=== PATIENT | male | born 1990 | race Caucasian/White ===

== ENCOUNTER 2019-11-15 19:52 | Inpatient (IN) ==
[2019-11-15] MEDS ORDERED: SODIUM CHLORIDE 0.9% 1000ML 2,000 ML IV SCH (20:30)
[2019-11-15] MEDS ORDERED: LORazepam 2 MG/ML VIAL (IM USE) IM STA (20:41)
[2019-11-15] MEDS ORDERED: DiphenhydrAMINE HCL 50 MG/ML VIAL IM STA (20:41)
[2019-11-15] MEDS ORDERED: HALOPERIDOL LACTATE 5 MG/ML 1 ML VIAL IM STA (20:41)
[2019-11-15 21:36] LABS: Basophils # (auto) 0.06 K/uL (0-0.2); Basophils % (auto) 0.5 %; Eosinophils # (auto) 0.07 K/uL (0-0.5); Eosinophils % (auto) 0.5 %; Hematocrit (blood only) 40.2 % (42-52); Hemoglobin 13.9 g/dL (14.0-18.0); Immature Granulocytes # (auto) 0.03 K/uL (0.00-0.02); Immature Granulocytes % (auto) 0.2 %; Lymphocytes # (auto) 1.54 K/uL (1.2-3.4); Lymphocytes % (auto) 11.8 %; Mean Corpuscular Hemoglobin 30.8 pg (25-34); Mean Corpuscular Hgb Conc 34.6 g/dL (32-36); Mean Corpuscular Volume 89.1 fL (80-100); Mean Platelet Volume 8.7 fL (7.4-10.4); Monocytes # (auto) 1.22 K/uL (0.11-0.59); Monocytes % (auto) 9.4 %; Neutrophils % (auto) 77.6 %; Platelet Count 331 K/uL (130-400); RDW Coefficient of Variation 13.3 % (11.5-14.5); RDW Standard Deviation 43.5 fL (36.4-46.3); Red Blood Count 4.51 M/uL (4.7-6.1); White Blood Count 13.02 K/uL (4.8-10.8)
[2019-11-15 22:22] LABS: Alanine Aminotransferase 49 U/L (12-78); Albumin Level 4.2 gm/dl (3.4-5.0); Aspartate Aminotransferase 154 U/L (15-37); BUN Creatinine Ratio 14.5 (10-20); Blood Urea Nitrogen 19 mg/dl (7-18); Calcium 9.2 mg/dl (8.5-10.1); Carbon Dioxide 26 mmol/L (21-32); Chloride 107 mmol/L (98-107); Est GFR (African American) 43.8; Est GFR (Non-African American) 37.8; Glucose 111 mg/dl (70-99); Magnesium 2.2 mg/dl (1.8-2.4); Potassium 3.6 mmol/L (3.5-5.1); Sodium 141 mmol/L (136-145)
[2019-11-15 22:37] LABS: Acetaminophen < 2 ug/ml (10-30); Salicylate 1.8 mg/dl (2.8-20)
[2019-11-15 22:51] LABS: Albumin Globulin Ratio 1.3 (0.9-2); Alkaline Phosphatase 65 U/L (45-117); Bilirubin,Total 0.7 mg/dl (0.2-1); Creatine Kinase 13641 U/L (39-308); Globulin 3.3 gm/dl (2.5-4.0); Total Protein 7.5 gm/dl (6.4-8.2); Troponin I < 0.015 ng/ml (0-0.045)
[2019-11-15] MEDS ORDERED: SODIUM CHLORIDE 0.9% 1000ML 1,000 ML IV STA (23:28)
[2019-11-16 00:19] LABS: Appearance Urine Clear (Clear); Bacteria Urine Automated Negative (Negative); Blood Urine Negative (Negative); Color Urine Dark Yellow; Glucose Urine UA Negative (Negative); Ketones Urine 1+ (Negative); Leukocyte Esterase Urine Trace (Negative); Nitrite Urine Negative (Negative); Protein Urine 1+ (Negative); RBC Urine Automated 0-4 /hpf (0-4); Specific Gravity Urine 1.035 (1.000-1.030); Urobilinogen Urine Negative (Negative)
--- NOTE | 2019-11-16 00:22 | Emergency Department Note ---
Impression & Plan AMS (altered mental status), Delirium, Rhabdomyolysis ED Provider Note INFORMANT: EMS ED PROVIDER(S): Albert Wise MD CHIEF COMPLAINT: Altered mental status PLAN: Disposition: Admitted Condition: Guarded MEDICAL DECISION MAKING: Patient presented to emergency department with altered mental status. He was experiencing what appeared to be an excited delirium. Unfortunately he was extremely combative, dangerous, and not following commands. He did require physical and chemical sedation and restraint in order to protect him and the staff. He did receive 10 mg of Haldol IM, Ativan 2 mg IM, Benadryl 25 mg IM. This worked very well for controlling his agitation and aggressive behavior. He was frequently monitored. He underwent CT imaging of his head and cervical spine which did not reveal any traumatic findings. Chest x-ray was unremarkable. The patient had a mild leukocytosis on CBC otherwise his chemistries were unremarkable. Toxicology screen is pending. His total CK measurement was markedly elevated which was concerning for rhabdomyolysis. He was aggressively hydrated. A [place] catheter was placed. Urinalysis and UDS sent. Consultation was made with Dr. Jordan Weller of the [facility] service. He evaluated the patient in the emergency department for further management of his excited delirium and his rhabdomyolysis. Patient was admitted for further treatment. Triage Nursing notes reviewed and agree them. [Additional history obtained from] EMS Vital Signs: reviewed and remarkable for tachycardia Differential diagnosis: Toxicologic, infection, hypoglycemia, electrolyte abnormalities, overdose, cardiac sources, intracerebral event, neurologic, trauma, as well as other pathologies. Diagnostics interpreted by me: ECG: Twelve-lead ECG reveals a normal sinus rhythm at 95 bpm. There is low voltage QRS. Normal axis and normal QRS. No ST elevation or depression. No PACs or PVCs. Cardiac Monitoring: Cardiac monitoring ordered by me: The patient was placed on continuous cardiac monitoring and observed. It revealed a normal sinus rhythm at 89 beats per minute without ectopy or evidence of dysrhythmia. Imaging studies: Chest x-ray. Findings: A chest x-ray was performed and revealed no pneumothorax, effusion, infiltrate, pulmonary edema, free air under the diaphragm, or wide mediastinum. Impression: No acute disease. Head CT: A noncontrast CT scan of the head was performed and was negative for tumor, fracture, intracranial hemorrhage, or other acute pathology. Cervical spine CT was negative for acute process. [facility] HPI: The patient is a unknown age male who presents to the Emergency Room with police due to altered mental status and abnormal behavior. Patient was reportedly acting strange near the [place]. The patient was attempting to break into vehicle and then reportedly jumped into the police car and tried to run over the officers. Due to his aggressive behavior and delirious status the patient was deemed a danger to himself and the officers. He was tased. He was physically restrained. He was subdued and brought to the emergency department for evaluation. Upon arrival the patient only stated his name and that he had hepatitis C. He denied any pain but would not follow commands. He was physically aggressive with staff. He required restraint for his protection as well as that of the medical staff and security. History is limited secondary to his altered mental status. ROS: Untenable secondary to altered mental status. PAST MEDICAL HISTORY:Unobtainable secondary to altered mental status PAST SURGICAL HISTORY:Unobtainable secondary to altered mental status FAMILY HISTORY:Unobtainable secondary to altered mental status SOCIAL HISTORY:Unobtainable secondary to altered mental status HOME MEDICATIONS:Unobtainable secondary to altered mental status ALLERGIES:Unobtainable secondary to altered mental status VITALS:[See Below] PHYSICAL EXAMINATION: GENERAL: Altered, agitated, uncooperative, age-appropriate appearing, mild dis tress HENT: Normocephalic, atraumatic. Oropharynx unremarkable. EYES: PERRL. Erythematous conjunctiva. Sclera non-icteric. NECK: Supple. Inspection normal. No nuchal rigidity. FROM. No masses. RESPIRATORY: CTA. Breath sounds equal. No wheezes. Normal respiratory effort. CARDIAC: Tachycardic rate. Normal rhythm. No murmurs. No rubs. GI/ABDOMEN: Soft, non distended. No tenderness to palpation. No rebound or guarding. No masses. RECTAL: Deferred. MUSCULOSKELETAL: No edema. No discoloration. Gross motor strength 5/5 bilaterally. NEURO: Altered sensorium. Not following commands however physically strong and moving all extremities purposefully. Speech is broken. SKIN: Mildly diaphoretic. Scattered abrasions on the extremities and trunk. No lacerations. No rash or jaundice noted. LYMPH: No adenopathy. ED COURSE: [Critical Care:] I have personally spent greater than 50 minutes of critical care time in the direct management of this patient. This includes bedside care, interpretation of diagnostic studies, and testing, discussion with consultants, patient, and other required patient management activities. These minutes are in excess of all separately billable procedures. Albert Wise MD Past Med/Surg History Social History Smoking Status: Current every day smoker Tobacco Type: Cigarettes Preferred Language: Citizen Of [place] Feels Safe at Home: Declines to Answer Allergies Allergies Allergy/AdvReac Type Severity Reaction Status Date / Time Unable to Assess Allergy Verified 11/15/19 20:43 Home Meds Home Medications Medication Instructions Recorded Confirmed Unobtainable 11/15/19 11/15/19 Results & Data (ED) Vital Signs Vital Signs - 24 hr 11/15/19 19:52 11/15/19 20:31 11/15/19 20:37 Temperature 37.5 C Temperature Source Axillary Pulse Rate 140 H 110 H Pulse Rate [Left Finger] Pulse Rate from SpO2 Sensor Respiratory Rate 23 15 Blood Pressure 106/62 111/78 Blood Pressure [Right Arm] Blood Pressure Mean 76 82 Blood Pressure Mean [Right Arm] Blood Pressure Position [Right Arm] Pulse Oximetry 96 Oxygen Delivery Method Room Air Room Air Sepsis Recent Fever Within 48 Hours No Sepsis New/Unexplained Change in Mental Status Yes Sepsis Action Taken by Nursing No Action Required 11/15/19 21:00 11/15/19 21:30 11/15/19 21:57 Temperature Temperature Source Pulse Rate 103 H 97 H 85 Pulse Rate [Left Finger] Pulse Rate from SpO2 Sensor 94 H 87 Respiratory Rate 17 14 15 Blood Pressure 120/64 126/65 136/74 Blood Pressure [Right Arm] Blood Pressure Mean 79 90 99 Blood Pressure Mean [Right Arm] Blood Pressure Position [Right Arm] Pulse Oximetry 96 95 95 Oxygen Delivery Method Sepsis Recent Fever Within 48 Hours Sepsis New/Unexplained Change in Mental Status Sepsis Action Taken by Nursing 11/15/19 21:59 11/15/19 22:00 11/15/19 23:00 Temperature Temperature Source Pulse Rate 87 88 Pulse Rate [Left Finger] 88 Pulse Rate from SpO2 Sensor 86 Respiratory Rate 16 16 13 Blood Pressure 135/71 143/79 H Blood Pressure [Right Arm] 136/74 Blood Pressure Mean 93 94 Blood Pressure Mean [Right Arm] 94 Blood Pressure Position [Right Arm] Lying Pulse Oximetry 95 95 98 Oxygen Delivery Method Room Air Sepsis Recent Fever Within 48 Hours Sepsis New/Unexplained Change in Mental Status Sepsis Action Taken by Nursing 11/15/19 23:34 Temperature Temperature Source Pulse Rate 78 Pulse Rate [Left Finger] Pulse Rate from SpO2 Sensor Respiratory Rate 13 Blood Pressure 134/80 Blood Pressure [Right Arm] Blood Pressure Mean 89 Blood Pressure Mean [Right Arm] Blood Pressure Position [Right Arm] Pulse Oximetry 98 Oxygen Delivery Method Sepsis Recent Fever Within 48 Hours Sepsis New/Unexplained Change in Mental Status Sepsis Action Taken by Nursing Laboratory Data Result diagrams: 11/15/19 21:20 11/15/19 21:20 Lab Results 11/15/19 11/15/19 11/15/19 Range/Units 21:20 21:20 21:20 WBC 13.02 H (4.8-10.8) K/uL RBC 4.51 L (4.7-6.1) M/uL Hgb 13.9 L (14.0-18.0) g/dL Hct 40.2 L (42-52) % MCV 89.1 (80-100) fL MCH 30.8 (25-34) pg MCHC 34.6 (32-36) g/dL RDW Std Deviation 43.5 (36.4-46.3) fL RDW Coeff of Liam 13.3 (11.5-14.5) % Plt Count 331 (130-400) K/uL MPV 8.7 (7.4-10.4) fL Immature Gran % (Auto) 0.2 % Neut % (Auto) 77.6 % Lymph % (Auto) 11.8 % [place] % (Auto) 9.4 % Eos % (Auto) 0.5 % Baso % (Auto) 0.5 % Neut # (Auto) 10.10 H (1.4-6.5) K/uL Lymph # (Auto) 1.54 (1.2-3.4) K/uL [place] # (Auto) 1.22 H (0.11-0.59) K/uL Eos # (Auto) 0.07 (0-0.5) K/uL Baso # (Auto) 0.06 (0-0.2) K/uL Immature Gran # (Auto) 0.03 H (0.00-0.02) K/uL Sodium 141 (136-145) mmol/L Potassium 3.6 (3.5-5.1) mmol/L Chloride 107 (98-107) mmol/L Carbon Dioxide 26 (21-32) mmol/L Anion Gap 8.0 (3-11) BUN 19 H (7-18) mg/dl Creatinine 1.34 (0.6-1.4) mg/dl Est Cr Clr Drug Dosing Not Reportable Est GFR ( Amer) 43.8 Est GFR (Non-Af Amer) 37.8 BUN/Creatinine Ratio 14.5 (10-20) Glucose 111 H (70-99) mg/dl Calcium 9.2 (8.5-10.1) mg/dl Magnesium 2.2 (1.8-2.4) mg/dl Total Bilirubin 0.7 (0.2-1) mg/dl AST 154 H (15-37) U/L ALT 49 (12-78) U/L Alkaline Phosphatase 65 (45-117) U/L Total Creatine Kinase 63829 H (39-308) U/L Troponin I < 0.015 (0-0.045) ng/ml Total Protein 7.5 (6.4-8.2) gm/dl Albumin 4.2 (3.4-5.0) gm/dl Globulin 3.3 (2.5-4.0) gm/dl Albumin/Globulin Ratio 1.3 (0.9-2) Salicylates 1.8 L (2.8-20) mg/dl Acetaminophen < 2 L (10-30) ug/ml Ethyl Alcohol mg/dL (0-3) mg/dl 11/15/19 Range/Units 21:20 WBC (4.8-10.8) K/uL RBC (4.7-6.1) M/uL Hgb (14.0-18.0) g/dL Hct (42-52) % MCV (80-100) fL MCH (25-34) pg MCHC (32-36) g/dL RDW Std Deviation (36.4-46.3) fL RDW Coeff of Liam (11.5-14.5) % Plt Count (130-400) K/uL MPV (7.4-10.4) fL Immature Gran % (Auto) % Neut % (Auto) % Lymph % (Auto) % [place] % (Auto) % Eos % (Auto) % Baso % (Auto) % Neut # (Auto) (1.4-6.5) K/uL Lymph # (Auto) (1.2-3.4) K/uL [place] # (Auto) (0.11-0.59) K/uL Eos # (Auto) (0-0.5) K/uL Baso # (Auto) (0-0.2) K/uL Immature Gran # (Auto) (0.00-0.02) K/uL Sodium (136-145) mmol/L Potassium (3.5-5.1) mmol/L Chloride (98-107) mmol/L Carbon Dioxide (21-32) mmol/L Anion Gap (3-11) BUN (7-18) mg/dl Creatinine (0.6-1.4) mg/dl Est Cr Clr Drug Dosing Est GFR ( Amer) Est GFR (Non-Af Amer) BUN/Creatinine Ratio (10-20) Glucose (70-99) mg/dl Calcium (8.5-10.1) mg/dl Magnesium (1.8-2.4) mg/dl Total Bilirubin (0.2-1) mg/dl AST (15-37) U/L ALT (12-78) U/L Alkaline Phosphatase (45-117) U/L Total Creatine Kinase (39-308) U/L Troponin I (0-0.045) ng/ml Total Protein (6.4-8.2) gm/dl Albumin (3.4-5.0) gm/dl Globulin (2.5-4.0) gm/dl Albumin/Globulin Ratio (0.9-2) Salicylates (2.8-20) mg/dl Acetaminophen (10-30) ug/ml Ethyl Alcohol mg/dL < 3.0 (0-3) mg/dl Administered Medications Sodium Chloride (Nss 1000ml) 1,000 mls @ 200 mls/hr IV .Q5H STA Stop: 11/16/19 04:27 Last Admin: 11/15/19 23:37 Dose: 200 mls/hr Documented by: [id number] Discontinued Medications Diphenhydramine HCl (Benadryl) 25 mg IM NOW STA Stop: 11/15/19 20:42 Last Admin: 11/15/19 20:52 Dose: 25 mg Documented by: [id number] Haloperidol Lactate (Haldol) 10 mg IM NOW STA Stop: 11/15/19 20:42 Last Admin: 11/15/19 20:51 Dose: 10 mg Documented by: [id number] Sodium Chloride (Nss 1000ml) 2,000 mls @ 999 mls/hr IV .Q2H1M HUONG Stop: 11/15/19 22:30 Last Infusion: 11/15/19 23:09 Dose: 0 mls/hr Documented by: [id number] Admin: 11/15/19 21:30 Dose: 999 mls/hr Documented by: [id number] Lorazepam (Ativan) 2 mg IM NOW STA Stop: 11/15/19 20:42 Last Admin: 11/15/19 20:52 Dose: 2 mg Documented by: [id number] Discharge Plan Visit Data Chief Complaint: Psychiatric Symptoms/Problems Stated Complaint: overdose ED Provider: Albert Wise Discharge Problem: AMS (altered mental status), Delirium, Rhabdomyolysis Forms Stand Alone Forms: My [facility], Suicide Prevention Resources Prescriptions Prescriptions: No Action Unobtainable RF: 0
[2019-11-16 00:25] LABS: Bilirubin Urine Negative (Negative); Ictotest Urine Negative (Negative)
--- NOTE | 2019-11-16 00:25 | History & Physical Report ---
Date of Service November 16, 2019 Assessment & Plan (1) AMS (altered mental status): Altered mental status/excited delirium- Unknown cause at this time, with urine drug screen pending. Admit to monitored bed. Of note, patient is reported to have a warrant out for his arrest due to the activities of the evening. Present on Admission?: Yes (2) Delirium: Given Haldol 10 mg IM and Lorazepam 2 mg IV in ED. While available Haldol 5 mg IM and Lorazepam 1 mg IV every 4 hours as needed agitation. Patient did have soft limb restraints placed in the ED, which will be discontinued when we are convinced that the patient will no longer be agitated. Present on Admission?: Yes (3) [place]: [place] [address] upon admission, with creatinine 1.34. Received IV fluids in ED per septic protocol. Continue normal saline plus KCl 20 mEq at 1050 mils per hour. Follow serial BMP, magnesium and CK levels. Present on Admission?: Yes (4) Abnormal LFTs: AST 154 upon admission. We will repeat in a.m. Present on Admission?: Yes History of Present Illness Chief Complaint: The patient was brought to the emergency department due to altered mental status, interpreted as excited delirium, and due to being extremely combative, dangerous not following commands, he was sedated with Haldol 10 mg IM and lorazepam 2 mg IV, and placed in soft limb restraints. Primary Care Provider: NO PCP The patient is brought to the emergency department as noted above. He was sedated at the time of my examination, and not able to give information regarding HPI or review of systems. This history is obtained from the emergency department record. Work-up in the emergency department included laboratories with the following significant abnormalities: AST 154, CK 13 he was diagnosed with 641, creatinine 1.34 and WBC 13.02. He was diagnosed with rhabdomyolysis, given IV fluids per protocol, and was referred for evaluation for admission. Allergies Allergy/AdvReac Type Severity Reaction Status Date / Time Unable to Assess Allergy Verified 11/15/19 20:43 Home Medications Home Medications Medication Instructions Recorded Confirmed Type Unobtainable 11/15/19 11/15/19 History Past Med/Surg History Social History Smoking Status: Unknown if ever smoked Tobacco Type: Cigarettes Preferred Language: [place] Communication Ability Comment: Pt unable to answer at this time d/t sedation. Current Living Situation Comment: Pt unable to answer at this time d/t sedation. Feels Safe at Home: Declines to Answer Review of Systems Review of Systems: Unobtainable due to cognitive status Physical Exam Physical Exam: The patient is sedated, well developed and well nourished, normocephalic and atraumatic, lying in bed and in no acute distress. HEENT--PERRL, EOMI, mucous membranes and oropharynx dry. Neck--supple. No JVD. No bruits. Thyroid normal, trachea midline, no adenopathy. Heart--normal S1 and S2. No murmurs, rubs or gallops. Lungs--clear bilaterally, no respiratory distress, no accessory muscle use. Abdomen--normal bowel sounds and soft. Nontender. Nondistended. Extremities--no cyanosis or clubbing. No edema. There are good distal pulses b/l. Dermatologic--normal skin turgor, normal color. Few scattered ecchymoses. Neurologic--cranial nerves II through XII grossly intact. Rheumatologic--limited exam Psychiatric--limited exam Results & Data Results & Data ([facility]) Vital Signs (Past 12 Hours) Vital Signs Temp Pulse Pulse Resp BP BP Pulse Ox 11/15/19 23:34 78 13 134/80 98 11/15/19 23:00 88 13 143/79 H 98 11/15/19 22:00 87 16 135/71 95 11/15/19 21:59 88 16 136/74 95 11/15/19 21:57 85 15 136/74 95 11/15/19 21:30 97 H 14 126/65 95 11/15/19 21:00 103 H 17 120/64 96 11/15/19 20:31 110 H 15 111/78 11/15/19 19:52 99.5 F 140 H 23 106/62 96 Laboratory Results Laboratory Results WBC 13.02 K/uL (4.8-10.8) H 11/15/19 21:20 RBC 4.51 M/uL (4.7-6.1) L 11/15/19 21:20 Hgb 13.9 g/dL (14.0-18.0) L 11/15/19 21:20 Hct 40.2 % (42-52) L 11/15/19 21:20 MCV 89.1 fL (80-100) 11/15/19 21:20 MCH 30.8 pg (25-34) 11/15/19 21:20 MCHC 34.6 g/dL (32-36) 11/15/19 21:20 RDW Std Deviation 43.5 fL (36.4-46.3) 11/15/19 21:20 RDW Coeff of Liam 13.3 % (11.5-14.5) 11/15/19: Plt Count 331 K/uL (130-400) 11/15/19 21:20 MPV 8.7 fL (7.4-10.4) 11/15/19 21:20 Immature Gran % (Auto) 0.2 % 11/15/19 21: Neut % (Auto) 77.6 % 11/15/19 21: Lymph % (Auto) 11.8 % 11/15/19 21:20 [place] % (Auto) 9.4 % 11/15/19 21:20 Eos % (Auto) 0.5 % 11/15/19 21: Baso % (Auto) 0.5 % 11/15/19 21:20 Neut # (Auto) 10.10 K/uL (1.4-6.5) H 11/15/19 21:20 Lymph # (Auto) 1.54 K/uL (1.2-3.4) 11/15/19 21:20 [place] # (Auto) 1.22 K/uL (0.11-0.59) H 11/15/19 21:20 Eos # (Auto) 0.07 K/uL (0-0.5) 11/15/19 21:20 Baso # (Auto) 0.06 K/uL (0-0.2) 11/15/19 21:20 Immature Gran # (Auto) 0.03 K/uL (0.00-0.02) H 11/15/19 21:20 Sodium 141 mmol/L (136-145) 11/15/19 21:20 Potassium 3.6 mmol/L (3.5-5.1) 11/15/19 21:20 Chloride 107 mmol/L (98-107) 11/15/19 21:20 Carbon Dioxide 26 mmol/L (21-32) 11/15/19 21:20 Anion Gap 8.0 (3-11) 11/15/19 21:20 BUN 19 mg/dl (7-18) H 11/15/19 21:20 Creatinine 1.34 mg/dl (0.6-1.4) 11/15/19 21:20 Est Cr Clr Drug Dosing Not Reportable 11/15/19 21:20 Est GFR ( Amer) 43.8 11/15/19 21:20 Est GFR (Non-Af Amer) 37.8 11/15/19 21:20 BUN/Creatinine Ratio 14.5 (10-20) 11/15/19 21:20 Glucose 111 mg/dl (70-99) H 11/15/19 21:20 Calcium 9.2 mg/dl (8.5-10.1) 11/15/19 21: Magnesium 2.2 mg/dl (1.8-2.4) 11/15/19 21:20 Total Bilirubin 0.7 mg/dl (0.2-1) 11/15/19 21:20 AST 154 U/L (15-37) H 11/15/19 21:20 ALT 49 U/L (12-78) 11/15/19 21:20 Alkaline Phosphatase 65 U/L (45-117) 11/15/19 21:20 Total Creatine Kinase 51751 U/L (39-308) H 11/15/19 21:20 Troponin I < 0.015 ng/ml (0-0.045) 11/15/19 21:20 Total Protein 7.5 gm/dl (6.4-8.2) 11/15/19 21:20 Albumin 4.2 gm/dl (3.4-5.0) 11/15/19 21:20 Globulin 3.3 gm/dl (2.5-4.0) 11/15/19 21:20 Albumin/Globulin Ratio 1.3 (0.9-2) 11/15/19 21:20 Urine Color Dark Yellow 11/15/19 23:57 Urine Appearance Clear (Clear) 11/15/19 23:57 Urine pH 5.0 (4.5-7.5) 11/15/19 23:57 Ur Specific [place] 1.035 (1.000-1.030) H 11/15/19 23:57 Urine Protein 1+ (Negative) H 11/15/19 23:57 Urine Glucose (UA) Negative (Negative) 11/15/19 23:57 Urine Ketones 1+ (Negative) H 11/15/19 23:57 Urine Blood Negative (Negative) 11/15/19 23:57 Urine Nitrite Negative (Negative) 11/15/19 23:57 Urine Bilirubin Negative (Negative) 11/15/19 23:57 Urine Urobilinogen Negative (Negative) 11/15/19 23:57 Ur Leukocyte Esterase Trace (Negative) H 11/15/19 23:57 Urine WBC (Auto) 1-5 /hpf (0-5) 11/15/19 23:57 Urine RBC (Auto) 0-4 /hpf (0-4) 11/15/19 23:57 U Hyaline Cast (Auto) 10-30 /lpf (0-5) H 11/15/19 23:57 U Epithel Cells (Auto) 5-10 /lpf (0-5) H 11/15/19 23:57 Urine Bacteria (Auto) Negative (Negative) 11/15/19 23:57 Salicylates 1.8 mg/dl (2.8-20) L 11/15/19 21:20 Urine Opiates Screen Neg (Neg) 11/15/19 23:57 Ur Methadone, Qual Neg (Neg) 11/15/19 23:57 Acetaminophen < 2 ug/ml (10-30) L 11/15/19 21:20 Urine Barbiturates Neg (Neg) 11/15/19 23:57 Ur Phencyclidine (PCP) Neg (Neg) 11/15/19 23:57 U Amphetamin/Meth Scrn Pos (Neg) H 11/15/19 23:57 MDMA (Ecstasy) Screen Pos (Neg) H 11/15/19 23:57 U Benzodiazepines Scrn Neg (Neg) 11/15/19 23:57 Ur Cocaine Metabolite Neg (Neg) 11/15/19 23:57 U Marijuana (THC) Screen Pos (Neg) H 11/15/19 23:57 Ethyl Alcohol mg/dL < 3.0 mg/dl (0-3) 11/15/19 21:20 Diagnostic Findings [facility] Patient: GLORIA STEVE (Male) : [birth year] Status: ER Date: 11/15/19 22:02 Room #: History: altered mental status, fall Slices: 959 Priors: Tech: Kylah Bull @ [phone] Exams: CT C SPINE Accession Numbers: [id number] Preliminary Findings Only See Final Report For Complete Findings CT C SPINE: No acute fracture or subluxation of the cervical spine. Radiologist: Mykel Campos MD Study ready at 22:04 and initial results transmitted at 22:18 *This report constitutes a preliminary interpretation only. Non-acute findings felt to be unrelated to the clinical presentation may not be discussed in this report. The study will be interpreted and a final report will be generated by the local Radiologist the following shift. To reach the hospital radiology department call [phone]. If a discrepancy is found between the preliminary and final interpretations of this study, please notify us via our Client Portal at [email or web address], under QA [email or web address].You can also fax this report with a description of the discrepancy, or include the final report, to our daytime fax number [phone].If faxing, please indicate the severity of discrepancy using one of the following categories: [ ] 1 - Agree/Informational [ ] 2 - Unlikely to Affect Management [ ] 3 - Possible Eventual Change of Management [ ] 4 - Probable Immediate Change of Management For all other patient related information, please fax us at [phone]. [id number] [facility] Patient: GLORIA STEVE (Male) : [birth year] Status: ER Date: 11/15/19 22:06 Room #: History: altered mental status, fall Slices: 66 Priors: Tech: Kylah Bull @ [phone] Exams: CT HEAD Accession Numbers: [id number] Preliminary Findings Only See Final Report For Complete Findings CT HEAD: No calvarial fracture or intracranial hemorrhage. Radiologist: Mykel Campos MD Study ready at 22:08 and initial results transmitted at 22:16 *This report constitutes a preliminary interpretation only. Non-acute findings felt to be unrelated to the clinical presentation may not be discussed in this report. The study will be interpreted and a final report will be generated by the local Radiologist the following shift. To reach the hospital radiology department call [phone]. If a discrepancy is found between the preliminary and final interpretations of this study, please notify us via our Client Portal at [email or web address], under QA [email or web address].You can also fax this report with a description of the discrepancy, or include the final report, to our daytime fax number [phone].If faxing, please indicate the severity of discrepancy using one of the following categories: [ ] 1 - Agree/Informational [ ] 2 - Unlikely to Affect Management [ ] 3 - Possible Eventual Change of Management [ ] 4 - Probable Immediate Change of Management For all other patient related information, please fax us at [phone]. [id number] Code Status & VTE Plan Code Status Full code VTE Prophylaxis Plan VTE Prophylaxis will be ordered: Yes PG Care Time/CCT Total # of Minutes Spent Total Time Spent with Patient: Total time spent is greater than 50% in coordination of care (as documented) at patient's floor/unit and/or counseling patient: Coding Level of Care Code 88871 OBS Care - Level 3 Diagnoses AMS (altered mental status) R41.82 Delirium R41.0 Rhabdomyolysis M62.82 Abnormal LFTs R94.5
[2019-11-16 00:43] LABS: Amphetamines+Metham, Urine Pos (Neg); Barbiturates, Urine Neg (Neg); Benzodiazepine, Urine Neg (Neg); Cocaine, Urine Neg (Neg); MDMA (Ecstacy), Urine Pos (Neg); Methadone, Urine Neg (Neg); Opiate, Urine Neg (Neg); Phencyclidine, Urine Neg (Neg)
[2019-11-16] MEDS ORDERED: ONDANSETRON INJ 2 MG/ML 2 ML VIAL IV PRN (01:03)
[2019-11-16] MEDS ORDERED: HALOPERIDOL LACTATE 5 MG/ML 1 ML VIAL IM PRN (01:03)
[2019-11-16] MEDS ORDERED: LORazepam 1 MG/2 ML VIAL IV PRN (01:03)
[2019-11-16] MEDS: NSS + 20MEQ KCL 20 MEQ/1,000 ML BAG IV SCH ×6 (01:53→22:23)
[2019-11-16 06:39] LABS: Basophils # (auto) 0.07 K/uL (0-0.2); Basophils % (auto) 0.6 %; Eosinophils # (auto) 0.24 K/uL (0-0.5); Eosinophils % (auto) 2.2 %; Hematocrit (blood only) 38.9 % (42-52); Hemoglobin 13.3 g/dL (14.0-18.0); Immature Granulocytes # (auto) 0.02 K/uL (0.00-0.02); Immature Granulocytes % (auto) 0.2 %; Lymphocytes # (auto) 1.95 K/uL (1.2-3.4); Lymphocytes % (auto) 18.1 %; Mean Corpuscular Hemoglobin 30.9 pg (25-34); Mean Corpuscular Hgb Conc 34.2 g/dL (32-36); Mean Corpuscular Volume 90.5 fL (80-100); Mean Platelet Volume 8.8 fL (7.4-10.4); Monocytes # (auto) 1.16 K/uL (0.11-0.59); Monocytes % (auto) 10.8 %; Neutrophils # (auto) 7.35 K/uL (1.4-6.5); Neutrophils % (auto) 68.1 %; Platelet Count 296 K/uL (130-400); RDW Coefficient of Variation 13.4 % (11.5-14.5); RDW Standard Deviation 44.4 fL (36.4-46.3); White Blood Count 10.79 K/uL (4.8-10.8)
[2019-11-16 06:50] LABS: INR 1.1 (0.9-1.1); Prothrombin Time 11.6 Seconds (9.0-12.0)
[2019-11-16 07:13] LABS: Alanine Aminotransferase 44 U/L (12-78); Albumin Globulin Ratio 1.2 (0.9-2); Albumin Level 3.4 gm/dl (3.4-5.0); Alkaline Phosphatase 55 U/L (45-117); Aspartate Aminotransferase 149 U/L (15-37); Bilirubin,Total 0.7 mg/dl (0.2-1); Blood Urea Nitrogen 15 mg/dl (7-18); Carbon Dioxide 24 mmol/L (21-32); Chloride 115 mmol/L (98-107); Est GFR (African American) 70.8; Est GFR (Non-African American) 61.1; Globulin 2.8 gm/dl (2.5-4.0); Glucose 98 mg/dl (70-99); Potassium 4.1 mmol/L (3.5-5.1); Sodium 144 mmol/L (136-145); Total Protein 6.2 gm/dl (6.4-8.2)
--- NOTE | 2019-11-16 08:12 | CT Scan Report ---
CT SCAN OF THE CERVICAL SPINE CLINICAL HISTORY: Change in mental status. COMPARISON STUDY: No priors. TECHNIQUE: CT scan of the cervical spine is performed from the skull base to the upper thoracic spine . Images are reviewed in the axial, sagittal, and coronal planes. IV contrast was not administered fo r this examination. A dose lowering technique was utilized adhering to the principles of ALARA. CT DOSE: 1082.86 mGy.cm FINDINGS: Skeletal structures: The skeletal structures are well mineralized. There is no evidence of fracture o r subluxation involving the cervical spine. Vertebral body height and alignment are maintained. There is straightening of the cervical lordosis. The odontoid process and lateral masses are intact. The a tlantoaxial articulation is preserved. The spinous processes appear intact. Intervertebral discs: The disc spaces are well maintained. Central canal: Widely patent. Soft tissues: The prevertebral and paraspinous soft tissues are within normal limits. Calvarium: The visualized calvarium at the skull base appears intact. Brain parenchyma: Partially visualized brain parenchyma the skull base is within normal limits. Sinuses and mastoids: The visualized paranasal sinuses are clear. The mastoid air cells are well pneu matized. Lung apices: Clear as visualized. IMPRESSION: There is no evidence of fracture or subluxation involving the cervical spine. ACT 112: Negative or not required by law. Electronically signed by: Miguel Johnson M.D. 11/16/2019 8:11 AM
--- NOTE | 2019-11-16 08:16 | CT Scan Report ---
CT head/brain wo con CLINICAL HISTORY: 89 years-old Male with AMS. Acutely altered mental status TECHNIQUE: Multiple axial CT images of the head were obtained without contrast. A dose lowering tech nique was utilized adhering to the principles of ALARA. COMPARISON: CT cervical spine of same day FINDINGS: No acute intracranial hemorrhage, midline shift, intracranial mass, hydrocephalus, territorial ischem ia or abnormal extra-axial collection. The calvarium is intact. Mild subcutaneous edema of the left cheek. The paranasal sinuses, mastoid ai r cells, and middle ear cavities are clear. IMPRESSION: No acute intracranial abnormality or calvarial fracture. ACT 112: Negative or not required by law. The above report was generated using voice recognition software. It may contain grammatical, syntax o r spelling errors. Electronically signed by: London Yeboah M.D. 11/16/2019 8:15 AM
--- NOTE | 2019-11-16 08:48 | XRay Report ---
SINGLE VIEW CHEST CLINICAL HISTORY: Change in mental status. FINDINGS: An AP, portable, supine chest radiograph is obtained. No prior studies are available for co mparison at the time of dictation. The examination is degraded by portable technique and patient rota tion. The cardiomediastinal silhouette is unremarkable. The lungs and pleural spaces are clear. No p neumothorax is seen. The bony thorax is grossly intact. IMPRESSION: No active disease in the chest. ACT 112: Negative or not required by law. Electronically signed by: Miguel Johnson M.D. 11/16/2019 8:46 AM
[2019-11-16 13:25] LABS: BUN Creatinine Ratio 11.9 (10-20); Blood Urea Nitrogen 11 mg/dl (7-18); Calcium 7.7 mg/dl (8.5-10.1); Carbon Dioxide 25 mmol/L (21-32); Chloride 115 mmol/L (98-107); Est GFR (Non-African American) 59.5; Glucose 154 mg/dl (70-99); Potassium 4.1 mmol/L (3.5-5.1); Sodium 145 mmol/L (136-145)
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
[2019-11-17] MEDS: NSS + 20MEQ KCL 20 MEQ/1,000 ML BAG IV SCH ×2 (02:29→06:36)
[2019-11-17 07:11] LABS: Basophils # (auto) 0.09 K/uL (0-0.2); Basophils % (auto) 1.3 %; Eosinophils # (auto) 0.33 K/uL (0-0.5); Eosinophils % (auto) 4.6 %; Hematocrit (blood only) 36.7 % (42-52); Hemoglobin 12.1 g/dL (14.0-18.0); Lymphocytes # (auto) 2.27 K/uL (1.2-3.4); Lymphocytes % (auto) 31.7 %; Mean Corpuscular Hemoglobin 30.5 pg (25-34); Mean Corpuscular Volume 92.4 fL (80-100); Monocytes # (auto) 0.69 K/uL (0.11-0.59); Monocytes % (auto) 9.6 %; Neutrophils # (auto) 3.79 K/uL (1.4-6.5); Neutrophils % (auto) 52.8 %; Platelet Count 297 K/uL (130-400); RDW Coefficient of Variation 13.6 % (11.5-14.5); RDW Standard Deviation 46.5 fL (36.4-46.3); Red Blood Count 3.97 M/uL (4.7-6.1); White Blood Count 7.17 K/uL (4.8-10.8)
[2019-11-17 07:23] LABS: INR 1.2 (0.9-1.1); Prothrombin Time 12.1 Seconds (9.0-12.0)
[2019-11-17 07:47] LABS: Alanine Aminotransferase 41 U/L (12-78); Albumin Level 2.9 gm/dl (3.4-5.0); Aspartate Aminotransferase 120 U/L (15-37); BUN Creatinine Ratio 7.5 (10-20); Blood Urea Nitrogen 6 mg/dl (7-18); Calcium 7.7 mg/dl (8.5-10.1); Carbon Dioxide 24 mmol/L (21-32); Chloride 115 mmol/L (98-107); Est GFR (African American) 138.7; Est GFR (Non-African American) 119.7; Glucose 84 mg/dl (70-99); Magnesium 1.9 mg/dl (1.8-2.4); Potassium 4.3 mmol/L (3.5-5.1); Sodium 144 mmol/L (136-145)
[2019-11-17 08:25] LABS: Albumin Globulin Ratio 1.1 (0.9-2); Alkaline Phosphatase 47 U/L (45-117); Bilirubin,Total 0.8 mg/dl (0.2-1); Creatine Kinase 9364 U/L (39-308); Globulin 2.6 gm/dl (2.5-4.0); Total Protein 5.5 gm/dl (6.4-8.2)
--- NOTE | 2019-11-17 11:08 | Discharge Summary ---
Date of Service November 17, 2019 Admission HPI Per Admitting Provider The patient is brought to the emergency department as noted above. He was sedated at the time of my examination, and not able to give information regarding HPI or review of systems. This history is obtained from the emergency department record. Work-up in the emergency department included laboratories with the following significant abnormalities: AST 154, CK 13 he was diagnosed with 641, creatinine 1.34 and WBC 13.02. He was diagnosed with rhabdomyolysis, given IV fluids per protocol, and was referred for evaluation for admission. Admission Exam Per Admitting Provider The patient is sedated, well developed and well nourished, normocephalic and atraumatic, lying in bed and in no acute distress. HEENT--PERRL, EOMI, mucous membranes and oropharynx dry. Neck--supple. No JVD. No bruits. Thyroid normal, trachea midline, no adenopathy. Heart--normal S1 and S2. No murmurs, rubs or gallops. Lungs--clear bilaterally, no respiratory distress, no accessory muscle use. Abdomen--normal bowel sounds and soft. Nontender. Nondistended. Extremities--no cyanosis or clubbing. No edema. There are good distal pulses b/l. Dermatologic--normal skin turgor, normal color. Few scattered ecchymoses. Neurologic--cranial nerves II through XII grossly intact. Rheumatologic--limited exam Psychiatric--limited exam Principal Diagnosis Delirium Discharge Exam Patient left prior to assessment Discharge Data Allergies Allergy/AdvReac Type Severity Reaction Status Date / Time Unable to Assess Allergy Verified 11/15/19 20:43 Consultations 11/15/19 23:46 ED Decision to Admit Stat 11/16/19 01:03 Consult Case Management - Discharge Planning Routine Ordered Studies 11/15/19 20:47 CT cervical spine wo con Urgent CT head/brain wo con Urgent Hospital Course (1) Delirium: Edu Chandra is a 29-year-old male who was brought to the emergency department due to altered mental status which was thought to be excited delirium and who was admitted for excited delirium. Patient eloped following admission to the hospital. Excited delirium Edu Chandra was brought to the emergency department with altered mental status consistent with excited delirium. He was sedated with Haldol and lorazepam and placed in soft limb restraints due to concern for both staff and his own safety. Full history was not able to be obtained due to agitation and subsequent sedation. In the emergency department he was found to have a elevated CK, elevated AST, elevated creatinine, and elevated white blood cell count. He was diagnosed with rhabdomyolysis, placed on IV fluids per protocol, and admitted for further care. His urine drug screen returned positive for methamphetamine, MDMA, and THC. Serum alcohol was negative. CT head and CT C- spine showed no acute changes or abnormalities. Patient was noted to be progressively more alert, although continued to have periods of inappropriate answers and refusing to answer questions with some sedation. His CK down trend ed and his creatinine normalized with IV fluids. Patient refused to supply demographic information, [employer] ID was obtained by nursing and noted former [employer] status. Patient did not volunteer any further details. Given clinical improvement is soft limb restraints were removed as he did not appear agitated the day after admission. Haldol and lorazepam were kept as as needed for delirium/agitation. The next morning patient appeared nonagitated and in no acute distress, but was then reported by nursing staff to have eloped threatening to jump off of a balcony. Security was notified, patient had proceeded to the ground floor and eloped off the hospital premises. (2) Substance abuse: (3) Abnormal LFTs: (4) AMS (altered mental status): (5) Delirium: (6) Rhabdomyolysis: Total Time Total Time Spent Total Time Spent (In Minutes): See Attending Documentation Discharge Plan Discharge Items Patient Disposition: Against Medical Advice Reason For Visit: RHABDOMYOLYSIS, EXCITED DELIRIUM Discharge Diagnosis: Excited Delirium, rhabdomyolysis Activity: Per Instructions section Non-emergency contact: Primary Care Provider Call non-emergency contact if: you have any medication questions Follow-up/Referrals: PCP,NO [Primary Care Provider] - Diet: Regular Addtl Attending Provider Instructions: Patient eloped, left hospital grounds without notifying proviers Pending Studies at Discharge: No Stand-Alone Forms: [employer], Smoking Cessation, Suicide Prevention Resources Medications and DC Order Prescriptions: No Action Unobtainable RF: 0 Discharge Orders: Discharge Order (Routine); Ordered 11/17/19 Ordered By: Charles Montez Left Against Medical Advice (Routine); Ordered 11/17/19 Ordered By: Charles Montez Admission Data Admit Date/Time: 11/16/19 00:08 Attending Provider: Jaimee Logan Admit Provider: Jordan Weller Primary Care Provider: PCP,NO Other Providers: Jordan Weller ; Alicia Harley MD Date/Time DO NOT enter until pt leaves facility: 11/17/19 09:30 Supervising Physician Co-Signing Physician Notes Patient not seen by me before he left the hospital. Vargas Logan.
--- NOTE | 2019-11-17 13:33 | Electrocardiogram Report ---
Test Reason : Blood Pressure : / mmHG Vent. Rate : 095 BPM Atrial Rate : 095 BPM P-R Int : 164 ms QRS Dur : 092 ms QT Int : 374 ms P-R-T Axes : 067 019 042 degrees QTc Int : 469 ms Normal sinus rhythm Low voltage QRS Cannot rule out Anteroseptal infarct , age undetermined Abnormal ECG No previous ECGs available Confirmed by Geo Maria ([id number]) on 11/17/2019 1:33:16 PM Referred By: REFERRED SELF Confirmed By:Geo Maria
[2019-11-22 11:24] LABS: Amphetamine Urine, Confirm 1560 ng/mL (<250); MDA negative; MDEA negative; MDMA (Ecstasy) Urine, Confirm negative; Marijuana Quant, GCMS Urine 233 ng/mL (<5); Methamphetamine, Ur Confirm >15000 ng/mL (<250)
== END 2019-11-17 09:30 | disposition left against medical advice (07) | DRG 948 ==
LOC: ED 19:52 → EDBD 11-16 00:08 → SUATTDRO 11-16 00:08 → 2N 11-16 00:08